=== PATIENT | male | born 1995 | race Caucasian/White ===

== ENCOUNTER 2016-09-27 20:59 | Emergency (ER) | payer SELFPAY ==
[2016-09-27 21:24] VITALS: BP 145/83
[2016-09-27 22:38] LABS: APPEARANCE,URINE SLIGHTLY-CLOUDY; BILIRUBIN,URINE NEGATIVE (NEGATIVE); GLUCOSE, URINE NEGATIVE (NEGATIVE); KETONES,URINE NEGATIVE (NEGATIVE); LEUKOCYTE ESTERASE,URINE NEGATIVE (NEGATIVE); NITRITE,URINE NEGATIVE (NEGATIVE); PROTEIN,URINE NEGATIVE (NEGATIVE); URINE SPECIFIC GRAVITY 1.019; UROBILINOGEN,URINE NEGATIVE mg/dL (<2.0)
--- NOTE | 2016-09-28 00:41 | RADIOLOGY REPORT (SQ) ---
EXAM DESCRIPTION: U/S SCROTUM W/DOPPLER COMPLETED DATE/TIME: 09/28/2016 12:29 am REASON FOR STUDY: right testicular pain COMPARISON: None. TECHNIQUE: Static and realtime slater scale imaging of the scrotum and testes. Selected color Doppler and spectral images recorded to document blood flow. LIMITATIONS: None. FINDINGS: RIGHT: TESTICLE: Normal size. Microlithiasis. Normal blood flow. No masses. EPIDIDYMIS: Normal. HYDROCELE OR VARICOCELE: Small hydrocele. HERNIA OR EXTRA-TESTICULAR MASS: No. OTHER: No other significant finding. LEFT: TESTICLE: Normal size. Microlithiasis. Normal blood flow. No masses. EPIDIDYMIS: Normal. HYDROCELE OR VARICOCELE: Small hydrocele. HERNIA OR EXTRA-TESTICULAR MASS: No. OTHER: No other significant finding. IMPRESSION: No significant masses. No evidence for testicular torsion. Small bilateral hydroceles Bilateral microlithiasis. TECHNICAL DOCUMENTATION: JOB ID: [id number] [employer]- All Rights Reserved
--- NOTE | 2016-09-28 00:51 | ER Document Report ---
ED General - General Chief Complaint: Testicular Pain Stated Complaint: TESTICULAR PAIN Time Seen by Provider: 09/27/16 23:31 Notes: Patient is a 21-year-old male without past medical history who presents with 2 weeks of intermittent right testicular pain. Patient states and the pain is present as a severe, shooting pain that causes him to double over. The last several minutes and then does resolve. Nothing seems to improve the symptoms and it does go away spontaneously. Nothing seems to trigger the episodes. He denies any prior history of similar symptoms in the past. He does note intermittent right flank tenderness but states that it is not always present when the testicular pain is present. No prior history of kidney stones. He has not seen his primary care doctor regarding today's concerns. He denies any trauma to the area. States he continues to be able to urinate and ejaculate without any pain. TRAVEL OUTSIDE OF THE [place] IN LAST 30 DAYS: No - Related Data Allergies/Adverse Reactions: nystatin [Nystatin] Allergy (Verified 12/20/10 17:48) Past Medical History - General Information source: Patient - Social History Smoking Status: Never Smoker Frequency of alcohol use: None Drug Abuse: None Lives with: Spouse/Significant other Family History: Reviewed & Not Pertinent Patient has suicidal ideation: No Patient has homicidal ideation: No - Past Medical History Cardiac Medical History: Denies: Hx Heart Attack, Hx Hypertension Pulmonary Medical History: Denies: Hx Asthma Neurological Medical History: Denies: Hx Cerebrovascular Accident, Hx Seizures Renal/ Medical History: Denies: Hx Peritoneal Dialysis GI Medical History: Denies: Hx Hepatitis, Hx Hiatal Hernia, Hx Ulcer Infectious Medical History: Denies: Hx Hepatitis Past Surgical History: Denies: Hx Open Heart Surgery, Hx Pacemaker - Immunizations Immunizations up to date: Yes Hx Diphtheria, Pertussis, Tetanus Vaccination: Yes Hx Pneumococcal Vaccination: 02/16/09 Review of Systems - Review of Systems Notes: Constitutional: Negative for fever. HENT: Negative for sore throat. Eyes: Negative for visual changes. Cardiovascular: Negative for chest pain. Respiratory: Negative for shortness of breath. Gastrointestinal: Negative for abdominal pain, vomiting or diarrhea. Genitourinary: Positive for right testicle pain Musculoskeletal: Negative for back pain. Skin: Negative for rash. Neurological: Negative for headaches, weakness or numbness. 10 point ROS negative except as marked above and in HPI. Physical Exam - Vital signs Vitals: Temp Pulse Resp BP Pulse Ox 97.5 F 56 L 18 145/83 H 18 L 09/27/16 21:20 09/27/16 21:20 09/27/16 21:20 09/27/16 21:20 09/27/16 21:20 Pulse ox was normal at 100% not 18%. Notes: PHYSICAL EXAMINATION: GENERAL: Well-appearing, well-nourished and in no acute distress. HEAD: Atraumatic, normocephalic. EYES: Pupils equal round and reactive to light, extraocular movements intact, sclera anicteric, conjunctiva are normal. ENT: nares patent, oropharynx clear without exudates. Moist mucous membranes. NECK: Normal range of motion, supple without lymphadenopathy LUNGS: Breath sounds clear to auscultation bilaterally and equal. No wheezes rales or rhonchi. HEART: Regular rate and rhythm without murmurs ABDOMEN: Soft, nontender, normoactive bowel sounds. No guarding, no rebound. No masses appreciated. No CVA tenderness : Mild pain on palpation of the right testicle. No epididymal tenderness. Positive cremasteric reflex bilaterally. No inguinal canal defect. No appreciable hernia EXTREMITIES: Normal range of motion, no pitting or edema. No cyanosis. NEUROLOGICAL: No focal neurological deficits. Moves all extremities spontaneously and on command. PSYCH: Normal mood, normal affect. SKIN: Warm, Dry, normal turgor, no rashes or lesions noted. Course - Re-evaluation Re-evalutation: 09/28/16 00:46 Patient presents with 2 weeks of intermittent right-sided testicular pain, not present at time of my assessment. Patient does note that the pain intermittently radiates to his right flank but he is clear that the dominant portion of his pain is in the right flank. Testicular exam does show focal right testicular tenderness, no epididymal tenderness, positive cremasteric reflex bilaterally. No appreciable inguinal hernia bilaterally. Testicular ultrasound shows microlithiasis bilaterally. A bedside renal ultrasound does not show any evidence of hydronephrosis on the right or left. Urinalysis does show a large quantity of blood in the urine. Patient may have small kidney stones which could cause recurrence of his pain as described as well as hematuria. Alternative diagnostic considerations include that he has microlithiasis itself could be causing some pain to the right although it is unusual that he is bilaterally but only has pain on the right. Will empirically treat with tamsulosin, NSAIDs, provide a urine strainer, and have encouraged the patient to follow-up with urology at his earliest ability. At this time will discharge with return precautions and follow-up recommendations. Verbal discharge instructions given a the bedside and opportunity for questions given. Medication warnings reviewed. Patient is in agreement with this plan and has verbalized understanding of return precautions and the need for primary care follow-up in the next 24-72 hours. - Vital Signs Vital signs: Temp Pulse Resp BP Pulse Ox 97.5 F 56 L 18 145/83 H 18 L 09/27/16 21:20 09/27/16 21:20 09/27/16 21:20 09/27/16 21:20 09/27/16 21:20 - Laboratory Laboratory results interpreted by me: 09/27/16 22:22 Urine Blood LARGE H - Diagnostic Test Radiology reviewed: Reports reviewed Discharge - Discharge Clinical Impression: Right testicular pain, Right flank pain Condition: Good Disposition: HOME, SELF-CARE Additional Instructions: Your ultrasound shows that you have small stones in your testicles which may be part of your pain. However, you are being treated for a possible kidney stone. Your symptoms should improve over the course of the next one week. If you continue to have pain for greater than one week or your pain is not controlled with the pain medications that you have been sent home with you need to return to the emergency department. Please also return if you develop fever, persistent vomiting, or any other symptoms that are concerning to you. You should take ibuprofen 600 mg every 6 hours. You are also been sent home with a medication called Flomax to help pass the stone. Please also follow-up with a urologist a your earliest ability. Prescriptions: RX: Tamsulosin HCl [Flomax 0.4 mg Cap.sr] 0.4 mg PO DAILY #7 cap.sr.24h Referrals: MANDA REEDER MD [[facility]] - Follow up as needed
== END 2016-09-28 01:11 | disposition home or self-care (01) ==
LOC: ER 20:59
DX: N50.811 Right testicular pain (principal); R10.9 Unspecified abdominal pain; R31.9 Hematuria, unspecified
CPT/HCPCS: 76870; 81001; 93976; 99284

== ENCOUNTER 2016-11-08 18:25 | Emergency (ER) | payer SELFPAY ==
[2016-11-08] MEDS ORDERED: KETOROLAC TROMETHAMINE 60 MG/2 ML SDV IM ONE (18:57)
[2016-11-08] MEDS ORDERED: PROMETHAZINE HCL 25 MG TABLET PO ONE (18:57)
--- NOTE | 2016-11-08 18:59 | ER Document Report ---
ED General - General Chief Complaint: Flank Pain Stated Complaint: FLANK PAIN Time Seen by Provider: 11/08/16 18:54 Mode of Arrival: Ambulatory Information source: Patient Notes: 21-year-old male history of kidney stone approximately 2 months ago off ultrasound presents with complaints of left flank pain that has been ongoing for the past few days worsened today. Patient denies any fevers or chills admits to urinary frequency TRAVEL OUTSIDE OF THE [place] IN LAST 30 DAYS: No - HPI Onset: Yesterday Onset/Duration: Worse Quality of pain: Sharp Severity: Moderate Pain Level: 2 Associated symptoms: None Exacerbated by: Denies Relieved by: Denies Similar symptoms previously: Yes Recently seen / treated by doctor: Yes - Related Data Allergies/Adverse Reactions: nystatin [Nystatin] Allergy (Verified 11/08/16 18:28) Past Medical History - Social History Smoking Status: Never Smoker Cigarette use (# per day): No Chew tobacco use (# tins/day): No Smoking Education Provided: No Family History: Reviewed & Not Pertinent - Past Medical History Cardiac Medical History: Denies: Hx Heart Attack, Hx Hypertension Pulmonary Medical History: Denies: Hx Asthma Neurological Medical History: Denies: Hx Cerebrovascular Accident, Hx Seizures Renal/ Medical History: Denies: Hx Peritoneal Dialysis GI Medical History: Denies: Hx Hepatitis, Hx Hiatal Hernia, Hx Ulcer Infectious Medical History: Denies: Hx Hepatitis Past Surgical History: Denies: Hx Open Heart Surgery, Hx Pacemaker - Immunizations Immunizations up to date: Yes Hx Diphtheria, Pertussis, Tetanus Vaccination: Yes Hx Pneumococcal Vaccination: 02/16/09 Review of Systems - Review of Systems Notes: REVIEW OF SYSTEMS: CONSTITUTIONAL : Denies fever, chills, or sweats. Denies recent illness. EENT: Denies eye, ear, throat, or mouth pain or symptoms. Denies nasal or sinus congestion or discharge. Denies throat, tongue, or mouth swelling or difficulty swallowing. CARDIOVASCULAR: Denies chest pain. Denies palpitations or racing or irregular heart beat. Denies ankle edema. RESPIRATORY: Denies cough, cold, or chest congestion. Denies shortness of breath, difficulty breathing, or wheezing. GASTROINTESTINAL: Admits to flank pain GENITOURINARY: Denies difficulty urinating, painful urination, burning, frequency, blood in urine, or discharge. MUSCULOSKELETAL: Denies back or neck pain or stiffness. Denies joint pain or swelling. SKIN: Denies rash, lesions or sores. HEMATOLOGIC : Denies easy bruising or bleeding. LYMPHATIC: Denies swollen, enlarged glands. NEUROLOGICAL: Denies confusion or altered mental status. Denies passing out or loss of consciousness. Denies dizziness or lightheadedness. Denies headache. Denies weakness or paralysis or loss of use of either side. Denies problems with gait or speech. Denies sensory loss, numbness, or tingling. Denies seizures. PSYCHIATRIC: Denies anxiety or stress. Denies depression, suicidal ideation, or homicidal ideation. ALL OTHER SYSTEMS REVIEWED AND NEGATIVE. Dictation was performed using [employer] voice recognition software PHYSICAL EXAMINATION: GENERAL: Well-appearing, well-nourished and in no acute distress. HEAD: Atraumatic, normocephalic. EYES: Pupils equal round and reactive to light, extraocular movements intact, sclera anicteric, conjunctiva are normal. ENT: Nares patent, oropharynx clear without exudates. Moist mucous membranes. NECK: Normal range of motion, supple without lymphadenopathy LUNGS: Breath sounds clear to auscultation bilaterally and equal. No wheezes rales or rhonchi. HEART: Regular rate and rhythm without murmurs ABDOMEN: Soft, nontender, nondistended abdomen. No guarding, no rebound. No masses appreciated. left cva tenderness Musculoskeletal: Normal range of motion, no pitting or edema. No cyanosis. NEUROLOGICAL: Cranial nerves grossly intact. Normal speech, normal gait. Normal sensory, motor exams PSYCH: Normal mood, normal affect. SKIN: Warm, Dry, normal turgor, no rashes or lesions noted. Physical Exam - Vital signs Vitals: Temp Pulse Resp BP Pulse Ox 97.7 F 88 18 139/92 H 97 11/08/16 18:28 11/08/16 18:28 11/08/16 18:28 11/08/16 18:28 11/08/16 18:28 Course - Re-evaluation Re-evalutation: 11/08/16 18:58 Urinalysis imaging pending at this time patient otherwise in mild distress at this - Vital Signs Vital signs: Temp Pulse Resp BP Pulse Ox 97.7 F 88 18 139/92 H 97 11/08/16 18:28 11/08/16 18:28 11/08/16 18:28 11/08/16 18:28 11/08/16 18:28 - Laboratory Laboratory results interpreted by me: 11/08/16 19:00 Urine Protein 100 H Urine Blood LARGE H Discharge - Discharge Clinical Impression: Kidney stone on left side, Flank pain Nausea & vomiting Qualifiers: Vomiting type: unspecified Vomiting Intractability: non-intractable Qualified Code(s): R11.2 - Nausea with vomiting, unspecified Condition: Stable Disposition: HOME, SELF-CARE Instructions: Abdominal Pain ([facility]) Prescriptions: Hydrocodone/Acetaminophen [Chelsea 5-325 mg Tablet] 1 tab PO Q6 #14 tablet Metoclopramide HCl [Reglan 10 mg Tablet] 1 - 2 tab PO Q6 #25 tablet Tamsulosin HCl [Flomax] 0.4 mg PO DAILY #10 cap.er.24h Referrals: JOHN SELF MD [ACTIVE STAFF] - Follow up tomorrow
[2016-11-08 19:17] LABS: APPEARANCE,URINE CLOUDY; BILIRUBIN,URINE NEGATIVE (NEGATIVE); GLUCOSE, URINE NEGATIVE (NEGATIVE); KETONES,URINE NEGATIVE (NEGATIVE); LEUKOCYTE ESTERASE,URINE NEGATIVE (NEGATIVE); NITRITE,URINE NEGATIVE (NEGATIVE); PROTEIN,URINE 100 mg/dL (NEGATIVE); URINE SPECIFIC GRAVITY 1.029; UROBILINOGEN,URINE NEGATIVE mg/dL (<2.0)
--- NOTE | 2016-11-08 19:41 | RADIOLOGY REPORT (SQ) ---
EXAM DESCRIPTION: CT LTD RENAL STONE PROTOCOL ON COMPLETED DATE/TIME: 11/08/2016 7:28 pm REASON FOR STUDY: left flank pain COMPARISON: None. TECHNIQUE: CT scan of the abdomen and pelvis performed without intravenous or oral contrast. Images reviewed with lung, soft tissue, and bone windows. Reconstructed coronal and sagittal MPR images revi ewed. All images stored on PACS. All CT scanners at this facility use dose modulation, iterative reconstruction, and/or weight based d osing when appropriate to reduce radiation dose to as low as reasonably achievable (ALARA). [facility]: Dose Right [facility]: CareDose [facility]: Dose Right [facility]: Teradose 4D [facility]: [employer] RADIATION DOSE: mGy. LIMITATIONS: None. FINDINGS: LOWER CHEST: No significant findings. No nodules or infiltrates. NON-CONTRASTED LIVER, SPLEEN, ADRENALS: Evaluation limited by lack of IV contrast. No identified sign ificant masses. PANCREAS: No masses. No peripancreatic inflammatory changes. GALLBLADDER: No identified stones by CT criteria. No inflammatory changes to suggest cholecystitis. RIGHT KIDNEY AND URETER: No suspicious masses. Assessment limited by lack of IV contrast. Tiny nono bstructing renal calculi are identified. No hydronephrosis or hydroureter. LEFT KIDNEY AND URETER: No suspicious masses. Assessment limited by lack of IV contrast. Small nono bstructing renal calculi are identified. An obstructing 1 to 2 mm in diameter calculus is identified in the proximal left ureter best seen on image number 42. There is mild hydronephrosis and mild fullness of the left ureter proximal to this level. AORTA AND RETROPERITONEUM: No aneurysm. No retroperitoneal masses or adenopathy. BOWEL AND PERITONEAL CAVITY: No obvious masses or inflammatory changes. No free fluid. APPENDIX: Normal. PELVIS, BLADDER, AND ABDOMINAL WALL:No abnormal masses. No free fluid. Bladder normal. BONES: No significant findings. OTHER: No other significant finding. IMPRESSION: Bilateral nonobstructing renal calculi as noted above. Obstructing 1-2 mm in diameter c alculus in the proximal left ureter. Other findings as noted above COMMENT: Quality ID # [id number]: Final reports with documentation of one or more dose reduction techniques (e.g., Automated exposure control, adjustment of the mA and/or kV according to patient size, use of iterative reconstruction technique) TECHNICAL DOCUMENTATION: JOB ID: [id number]- All Rights Reserved
[2016-11-08 19:58] VITALS: BP 130/80
== END 2016-11-08 19:28 | disposition home or self-care (01) ==
LOC: ER 18:25
DX: N20.0 Calculus of kidney (principal); R10.9 Unspecified abdominal pain; R11.2 Nausea with vomiting, unspecified
CPT/HCPCS: 99284; 96372; 81001; 76380; J1885

== ENCOUNTER 2017-02-14 12:37 | Emergency (ER) | payer SELFPAY ==
[2017-02-14 12:42] VITALS: BP 128/82
[2017-02-14] MEDS ORDERED: IBUPROFEN 800 MG TABLET PO ONE (13:00)
[2017-02-14] MEDS ORDERED: PENICILLIN G BENZATHINE 1.2 MILLION UNIT/2 ML DISP.SYRIN IM ONE (13:00)
--- NOTE | 2017-02-14 13:02 | ER Document Report ---
HPI - HPI Patient complains to provider of: Sore throat Onset: Last week Onset/Duration: Persistent Quality of pain: Achy Pain Level: 4 Context: Patient presents complaining of sore throat for the past week. Patient reports fever initially at home that seems to have gotten better today. Patient does report recent sick contacts. Patient is concerned he has strep throat. Associated Symptoms: Fever - Resolved today, Sore throat. denies: Nonproductive cough, Productive cough, Earache Exacerbated by: Denies Relieved by: Denies Similar symptoms previously: Yes Recently seen / treated by doctor: No - ROS ROS below otherwise negative: Yes Systems Reviewed and Negative: Yes All other systems reviewed and negative - EENT EENT: REPORTS: Sore Throat - RESPIRATORY Respiratory: DENIES: Trouble Breathing, Coughing - GASTROINTESTINAL Gastrointestinal: DENIES: Patient vomiting - MUSCULOSKELETAL Musculoskeletal: DENIES: Back Pain, Neck Pain - DERM Skin Color: Normal Skin Problems: None Past Medical History - General Information source: Patient - Social History Smoking Status: Never Smoker Frequency of alcohol use: None Drug Abuse: None 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 Denies: Hx Peritoneal Dialysis GI Medical History: Denies: Hx Hepatitis, Hx Hiatal Hernia, Hx Ulcer Infectious Medical History: Denies: Hx Hepatitis Past Surgical History: Reports: Hx Oral Surgery, Hx Tonsillectomy - Immunizations Immunizations up to date: Yes Hx Diphtheria, Pertussis, Tetanus Vaccination: Yes Hx Pneumococcal Vaccination: 02/16/09 Vertical Provider Document - CONSTITUTIONAL Agree With Documented VS: Yes Exam Limitations: No Limitations General Appearance: WD/WN, Cachetic - INFECTION CONTROL TRAVEL OUTSIDE OF THE [place] IN LAST 30 DAYS: No - HEENT HEENT: Atraumatic, Normocephalic, Pharyngeal Tenderness, Pharyngeal Erythema. negative: Pharyngeal Exudate, Tympanic Membrane Red, Tympanic Membrane Bulging - NECK Neck: Lymphadenopathy-Left, Lymphadenopathy-Right - RESPIRATORY Respiratory: Breath Sounds Normal, No Respiratory Distress O2 Sat by Pulse Oximetry: 98 - CARDIOVASCULAR Cardiovascular: Regular Rate, Regular Rhythm, No Murmur - BACK Back: Normal Inspection - MUSCULOSKELETAL/EXTREMETIES Musculoskeletal/Extremeties: MAEW - NEURO Level of Consciousness: Awake, Alert, Appropriate Motor/Sensory: No Motor Deficit - DERM Integumentary: Warm, Dry, No Rash Course - Vital Signs Vital signs: Temp Pulse Resp BP Pulse Ox 98.5 F 69 18 128/82 H 98 02/14/17 12:41 02/14/17 12:41 02/14/17 12:41 02/14/17 12:41 02/14/17 12:41 Discharge - Discharge Clinical Impression: Sore throat Condition: Stable Disposition: HOME, SELF-CARE Instructions: Acetaminophen, Sore Throat ([facility]) Additional Instructions: Return immediately for any new or worsening symptoms Followup with your primary care provider, call tomorrow to make a followup appointment Forms: Return to Work Referrals: [facility] [Provider Group] - Follow up as needed
== END 2017-02-14 13:15 | disposition home or self-care (01) ==
LOC: ER 12:37
DX: J02.9 Acute pharyngitis, unspecified (principal); R59.0 Localized enlarged lymph nodes
CPT/HCPCS: 99282; 96372; J0561

== ENCOUNTER 2017-05-29 09:29 | Emergency (ER) | payer SELFPAY ==
--- NOTE | 2017-05-29 09:41 | ER Document Report ---
HPI - HPI Patient complains to provider of: Swelling to his left posterior jaw Onset: Other - 5 days ago Onset/Duration: Gradual Pain Level: 2 Context: 22-year-old male complaining of a lump posterior jawline inferior to the ear For 5 days. No scalp rash, no dental or mouth pain, no ear pain. Associated Symptoms: None Exacerbated by: Denies Relieved by: Denies Similar symptoms previously: No Recently seen / treated by doctor: No - ROS ROS below otherwise negative: Yes Systems Reviewed and Negative: Yes All other systems reviewed and negative Past Medical History - General Information source: Patient - Social History Smoking Status: Never Smoker Frequency of alcohol use: None Drug Abuse: None Lives with: Family Family History: Reviewed & Not Pertinent Renal/ Medical History: Reports: Hx Kidney Stones. Denies: Hx Peritoneal Dialysis GI Medical History: Denies: Hx Hepatitis, Hx Hiatal Hernia, Hx Ulcer Past Surgical History: Reports: Hx Oral Surgery, Hx Tonsillectomy - Immunizations Immunizations up to date: Yes Hx Diphtheria, Pertussis, Tetanus Vaccination: Yes Hx Pneumococcal Vaccination: 02/16/09 Vertical Provider Document - CONSTITUTIONAL Agree With Documented VS: Yes Exam Limitations: No Limitations General Appearance: No Apparent Distress - INFECTION CONTROL TRAVEL OUTSIDE OF THE [place] IN LAST 30 DAYS: No - HEENT HEENT: Normocephalic. negative: Conjuctival Injection, Pharyngeal Erythema, Tympanic Membrane Red, Tympanic Membrane Bulging Notes: teeth normal, no mouth infection, external ear is nontender mastoid is normal, no preauricular nodes - NECK Neck: Supple, Lymphadenopathy-Left - posterior mandible inferior to the left external ear, lymph node is about 1 cm firm Tender not red - RESPIRATORY Respiratory: Breath Sounds Normal, No Respiratory Distress - CARDIOVASCULAR Cardiovascular: Regular Rate, Regular Rhythm - MUSCULOSKELETAL/EXTREMETIES Musculoskeletal/Extremeties: MAEW - NEURO Level of Consciousness: Awake, Alert - DERM Integumentary: Warm, Dry, No Rash Course - Re-evaluation Re-evalutation: 05/29/17 10:[address] Weaver about this patient and he states it is a reactive viral lymph node, tell him to take Motrin and heat and follow-up. The lab work is negative amylase is negative. - Vital Signs Vital signs: Temp Pulse Resp BP Pulse Ox 97.8 F 74 16 134/83 H 98 05/29/17 09:33 05/29/17 09:33 05/29/17 09:33 05/29/17 09:33 05/29/17 09:33 - Laboratory Result Diagrams: 05/29/17 09:50 05/29/17 09:50 Discharge - Discharge Clinical Impression: Adenopathy Condition: Good Disposition: HOME, SELF-CARE Instructions: Anti-Inflammatory Medication ([facility]), Lymphadenopathy ([facility]), Warm Packs ([facility]) Additional Instructions: Return to the emergency room if you develop a fever or increased size of this lymph node. Copy of your lab work Referral to family practice doctor Motrin Prescriptions: Ibuprofen [Motrin 800 mg Tablet] 800 mg PO Q8HP PRN #30 tablet PRN Reason: Referrals: MANDA HAYES MD [ACTIVE STAFF] - Follow up as needed
[2017-05-29 10:03] LABS: ABSOLUTE EOSINOPHILS # (AUTO) 0.4 10^3/uL (0.0-0.6); ABSOLUTE LYMPHOCYTES (AUTO) 2.1 10^3/uL (0.5-4.7); ABSOLUTE MONOCYTES (AUTO) 0.9 10^3/uL (0.1-1.4); ABSOLUTE NEUT (AUTO) 2.7 10^3/uL (1.7-8.2); BASOPHILS % (AUTO) 0.5 % (0-2); EOSINOPHILS % (AUTO) 6.8 % (0-6); HEMATOCRIT 44.8 % (37.9-51.0); HEMOGLOBIN 15.4 g/dL (13.5-17.0); MEAN CORPUSCULAR HEMOGLOBIN 30.4 pg (27.0-33.4); MEAN CORPUSCULAR HGB CONC 34.4 g/dL (32.0-36.0); MEAN CORPUSCULAR VOLUME 88 fl (80-97); MONOCYTES % (AUTO) 14.7 % (3-13); PLATELET COUNT 270 10^3/uL (150-450); RED BLOOD COUNT 5.07 10^6/uL (4.35-5.55); RED CELL DISTRIBUTION WIDTH 12.7 % (11.5-14.0); TOTAL CELLS COUNTED % (AUTO) 100 %; WHITE BLOOD COUNT 6.2 10^3/uL (4.0-10.5)
[2017-05-29 10:22] LABS: ALANINE AMINOTRANSFERASE 38 U/L (21-72); ALBUMIN 4.5 g/dL (3.5-5.0); ALKALINE PHOSPHATASE 69 U/L (38-126); AMYLASE 71 U/L (30-110); ANION GAP 11 (5-19); ASPARTATE AMINO TRANSFERASE 35 U/L (17-59); BILIRUBIN,DIRECT 0.1 mg/dL (0.0-0.4); BILIRUBIN,TOTAL 0.6 mg/dL (0.2-1.3); BLOOD UREA NITROGEN 14 mg/dL (7-20); CALCIUM 9.7 mg/dL (8.4-10.2); CARBON DIOXIDE 30 mmol/L (22-30); CHLORIDE 104 mmol/L (98-107); GLUCOSE 95 mg/dL (75-110); POTASSIUM 4.1 mmol/L (3.6-5.0); SODIUM 144.8 mmol/L (137-145); TOTAL PROTEIN 6.9 g/dL (6.3-8.2)
[2017-05-29 10:55] VITALS: BP 124/81
== END 2017-05-29 10:55 | disposition home or self-care (01) ==
LOC: ER 09:29
DX: R59.0 Localized enlarged lymph nodes (principal); Z98.890 Other specified postprocedural states
CPT/HCPCS: 36415; 80053; 82150; 85025; 99283

== ENCOUNTER 2018-05-05 09:59 | Emergency (ER) | payer SELFPAY ==
[2018-05-05] MEDS ORDERED: ONDANSETRON 4 MG TAB.RAPDIS PO ONE (10:33)
[2018-05-05] MEDS ORDERED: IBUPROFEN 800 MG TABLET PO ONE (10:33)
[2018-05-05] MEDS ORDERED: MECLIZINE HCL 25 MG TABLET PO ONE (10:33)
--- NOTE | 2018-05-05 10:34 | ER Document Report ---
HPI - HPI Patient complains to provider of: sore throat Time Seen by Provider: 05/05/18 10:23 Onset: Other - 5 days Onset/Duration: Persistent Quality of pain: Achy Pain Level: 2 Context: Patient presents with a 5-day history of cough, congestion and sore throat for the past 5 days. Patient reports nausea today although states he did not actually vomit. Patient also complains of dizziness in which she feels off balance. Patient does report multiple sick contacts in the household. Patient denies any fever. Associated Symptoms: Nonproductive cough, Nausea, Rhinnorhea, Sore throat. denies: Earache, Fever, Vomiting, Shortness of breath Exacerbated by: Denies Relieved by: Denies Similar symptoms previously: No Recently seen / treated by doctor: No - ROS ROS below otherwise negative: Yes Systems Reviewed and Negative: Yes All other systems reviewed and negative - CONSTITUTIONAL Constitutional: DENIES: Fever - EENT EENT: REPORTS: Sore Throat, Nasal Drainage-Clear, Congestion. DENIES: Ear Pain - NEURO Neurology: REPORTS: Dizzinesss / Vertigo. DENIES: Headache - RESPIRATORY Respiratory: REPORTS: Coughing. DENIES: Trouble Breathing - GASTROINTESTINAL Gastrointestinal: REPORTS: Nausea. 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 Denies: Hx Peritoneal Dialysis Past Surgical History: Reports: Hx Oral Surgery, Hx Tonsillectomy - Immunizations Immunizations up to date: Yes Hx Diphtheria, Pertussis, Tetanus Vaccination: Yes Hx Pneumococcal Vaccination: 02/16/09 Vertical Provider Document - CONSTITUTIONAL Agree With Documented VS: Yes Exam Limitations: No Limitations General Appearance: WD/WN, No Apparent Distress - INFECTION CONTROL TRAVEL OUTSIDE OF THE [place] IN LAST 30 DAYS: No - HEENT HEENT: Atraumatic, Normocephalic, Pharyngeal Tenderness, Pharyngeal Erythema. negative: Pharyngeal Exudate, Tympanic Membrane Red, Tympanic Membrane Bulging Notes: mild serous effusion bilat - NECK Neck: Normal Inspection, Supple. negative: Lymphadenopathy-Left, Lymphadenopathy-Right - RESPIRATORY Respiratory: Breath Sounds Normal, No Respiratory Distress, Chest Non-Tender - CARDIOVASCULAR Cardiovascular: Regular Rate, Regular Rhythm, No Murmur - GI/ABDOMEN Gastrointestinal: Abdomen Soft, Abdomen Non-Tender, No Organomegaly, Normal Bowel Sounds - BACK Back: Normal Inspection - MUSCULOSKELETAL/EXTREMETIES Musculoskeletal/Extremeties: TERENCE DELGADO - NEURO Level of Consciousness: Awake, Alert, Appropriate Motor/Sensory: No Motor Deficit - DERM Integumentary: Warm, Dry, No Rash Course - Re-evaluation Re-evalutation: 05/05/18 11:16 Patient reports that nausea symptoms have improved at this time. Patient nontoxic in appearance. Respirations even and unlabored. No concern for pneumonia or pneumothorax. Patient with stable vital signs. No concern for PE. Suspect likely viral etiology given the fact that his whole household has had similar symptoms recently. - Vital Signs Vital signs: Temp Pulse Resp BP Pulse Ox 98.7 F 73 16 137/87 H 100 05/05/18 10:06 05/05/18 10:06 05/05/18 10:06 05/05/18 10:06 05/05/18 10:06 - Laboratory Laboratory results interpreted by me: 05/05/18 11:17 Labs- Entire Visit 05/05/18 10:20 Group A Strep Rapid NEGATIVE Discharge - Discharge Clinical Impression: Sore throat Upper respiratory infection Qualifiers: URI type: unspecified URI Qualified Code(s): J06.9 - Acute upper respiratory infection, unspecified Condition: Stable Disposition: HOME, SELF-CARE Instructions: Sore Throat ([facility]), Upper Respiratory Illness ([facility]), Vertigo ([facility]) Additional Instructions: Return immediately for any new or worsening symptoms Followup with your primary care provider, call tomorrow to make a followup appointment Throat culture is pending, we will call if you need any different treatment Prescriptions: Meclizine HCl [Antivert 25 mg Tablet] 25 mg PO ASDIR PRN #12 tablet PRN Reason: Naproxen [Naprosyn 250 Nmg Tablet] 1 tab PO BID #14 tablet Ondansetron HCl [Zofran 4 mg Tablet] 1 - 2 tab PO Q6 PRN #15 tablet PRN Reason: Forms: Return to Work Referrals: [facility] [Provider Group] - Follow up as needed
[2018-05-05] MEDS ORDERED: PSEUDOEPHEDRINE HCL 30 MG TABLET PO ONE (10:57)
[2018-05-05 11:31] VITALS: BP 144/83
== END 2018-05-05 11:29 | disposition home or self-care (01) ==
LOC: ER 09:59
DX: J02.9 Acute pharyngitis, unspecified (principal); J06.9 Acute upper respiratory infection, unspecified; R05 Cough; R11.0 Nausea; R42 Dizziness and giddiness; J34.89 Other specified disorders of nose and nasal sinuses
CPT/HCPCS: 99283; 87070; 87880; S0119